=== PATIENT | female | born 1945 | race Caucasian/White ===

== ENCOUNTER 2020-07-01 16:39 | Inpatient (IN) ==
[2020-07-01] MEDS: *HR* Rivaroxaban 15 MG TABLET PO SCH (18:29)
[2020-07-01] MEDS: risperiDONE 1 MG TABLET PO SCH (18:30)
[2020-07-01] MEDS ORDERED: Famotidine 20 MG TABLET PO SCH (21:00)
[2020-07-02] MEDS: risperiDONE 1 MG TABLET PO SCH ×2 (05:53→17:01)
[2020-07-02] MEDS: amLODIPine 5 MG TABLET PO SCH (05:53)
[2020-07-02 07:20] LABS: Basophils # 0.1 K/mcL (0.0-0.2); Basophils % 0.4 %; Eosinophils # 0.2 K/mcL (0.0-0.6); Eosinophils % 1.1 %; Hematocrit 39.9 % (35.3-44.9); Hemoglobin 11.8 g/dL (11.5-15.4); Immature Granulocytes % 0.5 % (0-4); Lymphocytes # 1.5 K/mcL (0.6-4.6); Lymphocytes % 10.6 %; Mean Corpuscular HGB Conc 29.6 g/dL (31.6-35.5); Mean Corpuscular Hemoglobin 20.7 pg (28.0-33.3); Monocytes # 0.8 K/mcL (0.0-1.3); Monocytes % 5.9 %; Neutrophils # 11.7 K/mcL (1.6-8.9); Platelet Count 418 K/mcL (140-400); Red Cell Distribution Width 18.2 % (11.5-14.5); Segmented Neutrophils % 81.5 %; White Blood Count 14.3 K/mcL (4.3-11.1)
[2020-07-02 07:31] LABS: BUN/Creatinine Ratio 19 (6-26); Blood Urea Nitrogen 19 mg/dL (8-23); Calcium 9.5 mg/dL (8.6-10.3); Carbon Dioxide 26 mEq/L (23-29); Chloride 102 mEq/L (98-107); Glucose 150 mg/dL (70-105); Osmolality,Calculated 295 (280-300); Potassium 3.5 mEq/L (3.5-5.1); Sodium 140 mEq/L (136-145); eGFR For African Americans > 60 (> 60); eGFR For Non-African Americans 53 (> 60)
[2020-07-02] MEDS: *HR* Rivaroxaban 15 MG TABLET PO SCH ×2 (07:57→17:00)
[2020-07-02 12:08] LABS: Bilirubin,Urine Negative (Negative); Blood,Urine Moderate (Negative); Clarity,Urine Clear (Clear); Color,Urine Yellow (Yellow); Glucose,Urine (UA) Normal (Normal); Ketones,Urine Negative (Negative); Leukocyte Esterase,Urine Trace (Negative); Nitrite,Urine Negative (Negative); Protein,Urine Negative (Neg-Trace); Specific Gravity,Urine >= 1.030 (1.010-1.025); Urobilinogen,Urine Normal (Normal)
[2020-07-02 12:15] LABS: Bacteria,Urine Few per hpf (None-Few); Mucus,Urine Few per lpf (None-Few)
[2020-07-02 12:16] LABS: Hyaline Casts,Urine Few per lpf (None Seen)
[2020-07-02] MEDS: Melatonin 3 MG TABLET PO PRN (20:29)
[2020-07-02] MEDS: Famotidine 20 MG TABLET PO SCH (20:31)
[2020-07-03] MEDS: risperiDONE 1 MG TABLET PO SCH ×2 (05:59→16:50)
[2020-07-03] MEDS: amLODIPine 5 MG TABLET PO SCH (06:00)
[2020-07-03] MEDS: *HR* Rivaroxaban 15 MG TABLET PO SCH ×2 (08:30→16:50)
[2020-07-03] MEDS: Acetaminophen 325 MG TABLET PO PRN (13:42)
[2020-07-03] MEDS: Famotidine 20 MG TABLET PO SCH (20:14)
[2020-07-04] MEDS: risperiDONE 1 MG TABLET PO SCH ×2 (05:57→16:50)
[2020-07-04] MEDS: amLODIPine 5 MG TABLET PO SCH (05:57)
[2020-07-04] MEDS: *HR* Rivaroxaban 15 MG TABLET PO SCH ×2 (08:05→16:50)
[2020-07-04 08:10] LABS: Basophils # 0.1 K/mcL (0.0-0.2); Basophils % 0.5 %; Eosinophils # 0.2 K/mcL (0.0-0.6); Eosinophils % 1.2 %; Hematocrit 34.4 % (35.3-44.9); Hemoglobin 10.4 g/dL (11.5-15.4); Immature Granulocytes % 0.4 % (0-4); Lymphocytes # 2.3 K/mcL (0.6-4.6); Lymphocytes % 15.5 %; Mean Corpuscular HGB Conc 30.2 g/dL (31.6-35.5); Mean Corpuscular Hemoglobin 21.1 pg (28.0-33.3); Mean Corpuscular Volume 69.8 fL (83.0-100.0); Mean Platelet Volume 9.7 fL (9.4-12.4); Monocytes % 6.9 %; Platelet Count 337 K/mcL (140-400); Red Blood Count 4.93 M/mcL (3.82-4.97); Red Cell Distribution Width 17.5 % (11.5-14.5); Segmented Neutrophils % 75.5 %; White Blood Count 14.8 K/mcL (4.3-11.1)
[2020-07-04 08:18] LABS: BUN/Creatinine Ratio 22 (6-26); Blood Urea Nitrogen 20 mg/dL (8-23); Calcium 8.8 mg/dL (8.6-10.3); Carbon Dioxide 24 mEq/L (23-29); Chloride 104 mEq/L (98-107); Glucose 114 mg/dL (70-105); Osmolality,Calculated 293 (280-300); Potassium 3.8 mEq/L (3.5-5.1); Sodium 140 mEq/L (136-145); eGFR For African Americans > 60 (> 60); eGFR For Non-African Americans 59 (> 60)
[2020-07-04 08:19] LABS: Neutrophils # 11.2 K/mcL (1.6-8.9)
[2020-07-04 09:19] LABS: Microcytosis Present (Not Present)
[2020-07-04] MEDS: Famotidine 20 MG TABLET PO SCH (20:50)
[2020-07-05] MEDS: amLODIPine 5 MG TABLET PO SCH (06:00)
[2020-07-05] MEDS: risperiDONE 1 MG TABLET PO SCH ×2 (06:00→16:18)
[2020-07-05] MEDS: *HR* Rivaroxaban 15 MG TABLET PO SCH ×2 (07:56→16:18)
[2020-07-05] MEDS: Acetaminophen 325 MG TABLET PO PRN (11:19)
[2020-07-05] MEDS: haloperidoL 1 MG TABLET PO PRN (11:20)
[2020-07-05] MEDS: Famotidine 20 MG TABLET PO SCH (19:51)
[2020-07-06] MEDS: Acetaminophen 325 MG TABLET PO PRN (01:13)
[2020-07-06] MEDS: risperiDONE 1 MG TABLET PO SCH ×2 (05:24→16:59)
[2020-07-06] MEDS: amLODIPine 5 MG TABLET PO SCH (05:25)
[2020-07-06 06:47] LABS: Basophils # 0.1 K/mcL (0.0-0.2); Basophils % 0.5 %; Eosinophils # 0.2 K/mcL (0.0-0.6); Eosinophils % 1.4 %; Hematocrit 33.4 % (35.3-44.9); Immature Granulocytes % 0.4 % (0-4); Lymphocytes # 2.4 K/mcL (0.6-4.6); Lymphocytes % 17.9 %; Mean Corpuscular HGB Conc 29.9 g/dL (31.6-35.5); Mean Corpuscular Hemoglobin 20.9 pg (28.0-33.3); Mean Corpuscular Volume 69.7 fL (83.0-100.0); Mean Platelet Volume 10.3 fL (9.4-12.4); Monocytes % 7.4 %; Neutrophils # 9.6 K/mcL (1.6-8.9); Platelet Count 342 K/mcL (140-400); Red Blood Count 4.79 M/mcL (3.82-4.97); Red Cell Distribution Width 17.5 % (11.5-14.5); Segmented Neutrophils % 72.4 %; White Blood Count 13.2 K/mcL (4.3-11.1)
[2020-07-06 07:16] LABS: BUN/Creatinine Ratio 23 (6-26); Blood Urea Nitrogen 21 mg/dL (8-23); Calcium 8.7 mg/dL (8.6-10.3); Carbon Dioxide 27 mEq/L (23-29); Chloride 104 mEq/L (98-107); Glucose 94 mg/dL (70-105); Osmolality,Calculated 295 (280-300); Sodium 141 mEq/L (136-145); eGFR For African Americans > 60 (> 60); eGFR For Non-African Americans > 60 (> 60)
[2020-07-06] MEDS: *HR* Rivaroxaban 15 MG TABLET PO SCH ×2 (08:15→16:01)
[2020-07-06] MEDS: Melatonin 3 MG TABLET PO PRN (20:16)
[2020-07-06] MEDS: Famotidine 20 MG TABLET PO SCH (20:16)
[2020-07-07] MEDS: risperiDONE 1 MG TABLET PO SCH ×2 (05:58→17:15)
[2020-07-07] MEDS: amLODIPine 5 MG TABLET PO SCH (05:58)
[2020-07-07] MEDS: *HR* Rivaroxaban 15 MG TABLET PO SCH ×2 (08:20→17:15)
[2020-07-07] MEDS: Acetaminophen 325 MG TABLET PO PRN ×2 (08:22→19:58)
[2020-07-07] MEDS: Famotidine 20 MG TABLET PO SCH (19:58)
[2020-07-07] MEDS: Melatonin 3 MG TABLET PO PRN (19:58)
[2020-07-08] MEDS: risperiDONE 1 MG TABLET PO SCH ×2 (06:17→17:07)
[2020-07-08] MEDS: amLODIPine 5 MG TABLET PO SCH (06:17)
[2020-07-08] MEDS: *HR* Rivaroxaban 15 MG TABLET PO SCH ×2 (08:16→17:05)
[2020-07-08] MEDS: haloperidoL 1 MG TABLET PO PRN (10:22)
[2020-07-08] MEDS: Famotidine 20 MG TABLET PO SCH (21:45)
[2020-07-09] MEDS: amLODIPine 5 MG TABLET PO SCH (06:30)
[2020-07-09] MEDS: risperiDONE 1 MG TABLET PO SCH ×2 (06:32→16:43)
[2020-07-09] MEDS: *HR* Rivaroxaban 15 MG TABLET PO SCH ×2 (07:28→16:30)
[2020-07-09] MEDS: Acetaminophen 325 MG TABLET PO PRN (13:23)
[2020-07-09] MEDS: Famotidine 20 MG TABLET PO SCH (20:01)
[2020-07-10] MEDS ORDERED: Sennosides/Docusate Sodium TABLET PO PRN (00:34)
[2020-07-10] MEDS: amLODIPine 5 MG TABLET PO SCH (06:00)
[2020-07-10] MEDS: risperiDONE 1 MG TABLET PO SCH ×2 (06:00→16:23)
[2020-07-10 07:29] LABS: Hematocrit 33.1 % (35.3-44.9); Hemoglobin 9.8 g/dL (11.5-15.4); Mean Corpuscular HGB Conc 29.6 g/dL (31.6-35.5); Mean Corpuscular Hemoglobin 20.6 pg (28.0-33.3); Mean Corpuscular Volume 69.5 fL (83.0-100.0); Mean Platelet Volume 9.9 fL (9.4-12.4); Platelet Count 358 K/mcL (140-400); Red Blood Count 4.76 M/mcL (3.82-4.97); Red Cell Distribution Width 17.4 % (11.5-14.5); White Blood Count 11.4 K/mcL (4.3-11.1)
[2020-07-10 07:51] LABS: BUN/Creatinine Ratio 26 (6-26); Blood Urea Nitrogen 23 mg/dL (8-23); Calcium 8.6 mg/dL (8.6-10.3); Carbon Dioxide 25 mEq/L (23-29); Chloride 105 mEq/L (98-107); Glucose 98 mg/dL (70-105); Osmolality,Calculated 294 (280-300); Potassium 3.8 mEq/L (3.5-5.1); Sodium 140 mEq/L (136-145); eGFR For African Americans > 60 (> 60); eGFR For Non-African Americans > 60 (> 60)
[2020-07-10] MEDS: Acetaminophen 325 MG TABLET PO PRN (08:10)
[2020-07-10] MEDS: *HR* Rivaroxaban 15 MG TABLET PO SCH ×2 (08:11→16:23)
[2020-07-10] MEDS: Famotidine 20 MG TABLET PO SCH (20:12)
[2020-07-11] MEDS: Acetaminophen 325 MG TABLET PO PRN ×2 (01:58→20:04)
[2020-07-11] MEDS: risperiDONE 1 MG TABLET PO SCH ×2 (05:54→16:59)
[2020-07-11] MEDS: amLODIPine 5 MG TABLET PO SCH (05:54)
[2020-07-11] MEDS: *HR* Rivaroxaban 15 MG TABLET PO SCH ×2 (08:11→16:59)
[2020-07-11 13:56] LABS: Bilirubin,Urine Negative (Negative); Blood,Urine Negative (Negative); Clarity,Urine Clear (Clear); Color,Urine Yellow (Yellow); Glucose,Urine (UA) Normal (Normal); Ketones,Urine Negative (Negative); Leukocyte Esterase,Urine Negative (Negative); Nitrite,Urine Negative (Negative); PH,Urine 5.5 pH Units (5.0-8.0); Protein,Urine Negative (Neg-Trace); Specific Gravity,Urine 1.025 (1.010-1.025); Urobilinogen,Urine Normal (Normal)
[2020-07-11] MEDS: Famotidine 20 MG TABLET PO SCH (19:53)
[2020-07-11] MEDS ORDERED: Ibuprofen 600 MG TABLET PO PRN (21:28)
[2020-07-12] MEDS: amLODIPine 5 MG TABLET PO SCH (06:33)
[2020-07-12] MEDS: risperiDONE 1 MG TABLET PO SCH ×2 (06:33→17:11)
[2020-07-12] MEDS: *HR* Rivaroxaban 15 MG TABLET PO SCH ×2 (07:40→17:11)
[2020-07-12] MEDS: Melatonin 3 MG TABLET PO PRN (20:02)
[2020-07-12] MEDS: Famotidine 20 MG TABLET PO SCH (20:02)
[2020-07-13] MEDS: risperiDONE 1 MG TABLET PO SCH ×2 (06:29→17:16)
[2020-07-13] MEDS: amLODIPine 5 MG TABLET PO SCH (06:29)
[2020-07-13] MEDS: *HR* Rivaroxaban 15 MG TABLET PO SCH ×2 (07:35→17:15)
[2020-07-13] MEDS: Famotidine 20 MG TABLET PO SCH (19:45)
[2020-07-13] MEDS: Melatonin 3 MG TABLET PO PRN (19:47)
[2020-07-14] MEDS: amLODIPine 5 MG TABLET PO SCH (05:41)
[2020-07-14] MEDS: risperiDONE 1 MG TABLET PO SCH (05:42)
[2020-07-14 07:03] VITALS: BP 122/64
[2020-07-14] MEDS: *HR* Rivaroxaban 15 MG TABLET PO SCH (08:48)
[2020-07-15] MEDS ORDERED: *HR* Rivaroxaban 10 MG TABLET PO SCH (09:00)
== END 2020-07-14 11:35 | disposition home health service (06) | DRG 946 ==
LOC: INPPIK 16:54
PROVIDERS: ADMIT Family Medicine; ATTEND Family Medicine